=== PATIENT | male | born 1945 | race Caucasian/White ===

== ENCOUNTER → 2016-09-19 | Outpatient (CLI) | payer BC, MEDICARE ==
--- NOTE | 2016-09-19 14:36 | RADRPT ---
PROCEDURE: XR Knees. CLINICAL INDICATION: Bilateral knee pain. TECHNIQUE: Total of eight views. Weightbearing frontal, oblique, and lateral views of the both kn ees. Patellar views of both knees. COMPARISON: No prior study is available for comparison. FINDINGS: There is no fracture or dislocation. The soft tissues are normal. There are degenerative changes with osteophytes arising from all 3 joint compartment margins bilater ally. There is bilateral medial joint compartment narrowing and subarticular sclerosis. There is a ssociated varus deformity bilaterally. There is no lytic or blastic lesion. There is no radiopaque foreign body. IMPRESSION: 1. 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 RPTAT: QQ .Francisco Jarrett MD, MD Date Time Electronically viewed and signed by .Francisco Jarrett MD, MD on 09/19/2016 14:36 .R/
== END | disposition home or self-care (01) ==
LOC: HKI 16:46
PROVIDERS: ATTEND Orthopaedic Surgery
DX: M25.561 Pain in right knee (principal); M25.562 Pain in left knee; M17.0 Bilateral primary osteoarthritis of knee
CPT/HCPCS: 73564; G0463